=== PATIENT | female | born 1950 | race Caucasian/White ===

== ENCOUNTER → 2016-07-12 | Outpatient (CLI) | payer MEDICARE, BC ==
[~2016-07-12] MED LIST: ACETAMINOPHEN PO; ALBUTEROL17 GM INH; AMITRIPTYLINE H25 MG PO; AMOXICILLIN875 MG PO; ANTIVERT PO; B-100 COMPLEX1 TAB PO; BACTRIM DS TABL1 TA1 PO; BENTYL20 MG PO; CARAFATE1 G PO; CHROMIUM PO; CINNAMON PO; CIPRO PO; CLEOCIN HCL300 M1 PO; CLEOCIN PO; DOXYCYCLINE PO; FISH OIL 1,0001 CA2 PO; FISH OIL 1,0001 EACH PO; FISH OIL300 MG PO; FLAX SEED OIL1000 M1 PO; Flaxseed Oil PO; GLUCOSAMINE CHO PO; HAIR, SKIN & N1 EAC1 PO; LISINOPRIL-HCTZ1 T18 PO; LISINOPRIL-HCTZ1 T20 PO; LORTAB 5/500 TA1 TA1 PO; MEDROL PO; MUCINEX D1 TAB.SR1 PO; MULTIPLE VITAMI1 T11 PO; OMEPRAZOLE40 MG PO; PROMETHAZI6.25 MG/5 PO; RONDEC-DM ORAL30 ML PO; TURMERIC PO; TYLOX1 CAP 5/50 PO; VITAMIN D31000 UNI1 PO; ZYRTEC10 M2 PO
--- NOTE | ~2016-07-12 | BD1 ---
[facility] A Service of [facility] & [facility] RADIOLOGY TEXT RESULTS PATIENT: LEVY CARTY LOCATION: [facility] : 46 UNIT #: [id number] AGE: [address]: Amy Allison MD SEX: F ORDER DR: [id number] [facility] [address] [place], [place] [address] [id number] O MR#: [id number] Acc #: [id number] NAME: LEVY CARTY. : 1950 SEX: F STUDY DATE/TIME: 07/12/2016 12:45 UNIT: [facility] ROOM: STUDY DESCRIPTION: BD Dexa Bone Dens 1+ Site Attending Physician: Amy Allison M.D. Ordering Physician: Amy Allison M.D. Primary Care Physician: Amy Allison M.D. MEDICAL IMAGING REPORT This report is preliminary unless electronic signature is present EXAM Bone density scan, 07/12/2016. HISTORY Osteo. Hypertension. Patient takes multivitamins. History of kidney stones, arthritis, acid reflux, hiatal hernia. FINDINGS Bone density scanning performed in the upper four lumbar vertebral segments and proximal left femur. No comparison. L1-L4: Total bone mineral density 0.996 g/cm2 for a T-score of 0.5 standard deviation below mean for a reference population of normal young individuals and a Z-score 1.5 standard deviations above the mean for a age-matched population. Proximal right femur: Total bone mineral density 1.077 g/cm2 for a T-score 1.1 standard deviations above mean for a reference population of normal young individuals and a Z-score 2.5 standard deviations above the mean for an age-matched population. Right femoral neck bone mineral density 0.818 g/cm2 for a T-score 0.3 standard deviations below mean for a reference population of normal young individuals and a Z-score 1.4 standard deviations above the mean for an age-matched population. IMPRESSION Normal bone mineral density upper 4 lumbar vertebral segments and proximal left femur. Please correlate with the patient's clinical status. Continued surveillance is recommended. Dictated by... [facility]. [facility] A Service of [facility] RADIOLOGY TEXT RESULTS PATIENT: LEVY CARTY LOCATION: [facility] : 46 UNIT #: [id number] AGE: [address]: Amy Allison MD SEX: F ORDER DR: Galileo Madden M.D. THIS IS AN ELECTRONICALLY VERIFIED REPORT Galileo Madden M.D. at 07/15/2016 8:25 AM Mary TD: 07/14/2016 09:06 JOB #: [id number] MEDICAL IMAGING REPORT Page 1 of 1 COPY
--- NOTE | ~2016-07-12 | MY11 ---
[facility] A Service of [facility] RADIOLOGY TEXT RESULTS PATIENT: LEVY CARTY LOCATION: [facility] : 46 UNIT #: [id number] AGE: [address]: Amy Allison MD SEX: F ORDER DR: [id number] [facility] [address] [place], [place] [address] [id number] O MR#: [id number] Acc #: [id number] NAME: LEVY CARTY : 1950 SEX: F STUDY DATE/TIME: 07/12/2016 12:49 UNIT: [facility] ROOM: STUDY DESCRIPTION: MY Mammogram Screening Dig Narayan Attending Physician: Amy Allison M.D. Ordering Physician: Amy Allison M.D. Primary Care Physician: Amy Allison M.D. MEDICAL IMAGING REPORT This report is preliminary unless electronic signature is present EXAM Digital screening mammogram 07/12/2016. HISTORY 65-year-old woman. No risk elevation. Annual screen. COMPARISON Mammograms date to 11/13/2005 with most recent 01/17/2014. Digital imaging of each breast was completed utilizing a two-view examination of each breast in craniocaudal and mediolateral-oblique projections. Review and interpretation of digital mammograms include a second review in conjunction with FDA-approved CAD device. There is a normal parenchymal presentation bilaterally consistent with the patient's age. There are no breast masses imaged and no parenchymal asymmetry is visualized. There are no suspicious microcalcifications and I see no focal architectural disturbance. IMPRESSION Negative screening digital mammogram. One-year followup recommended. Patients over the age of 40 are entered into a reminder system with target due date for the next mammogram. A result letter will also be sent to the patient. BIRADS: 1 Negative ADDENDUM Breast parenchyma is fatty replaced. Dictated by... Ab Lema M.D. [facility] A Service [facility] RADIOLOGY TEXT RESULTS PATIENT: LEV[facility] CARTY [id number] 46 UNIT #: [id number] AGE: [address]: Amy Allison MD SEX: F ORDER DR: THIS IS AN ELECTRONICALLY VERIFIED REPORT Ab Lema M.D. at 07/12/2016 2:26 PM Odilon TD: 07/12/2016 13:57 JOB #: [id number] MEDICAL IMAGING REPORT Page 1 of 1 COPY
== END | disposition home or self-care (01) ==
LOC: CWCC 07-09 09:00
DX: Z12.31 Encounter for screening mammogram for malignant neoplasm of breast (principal); Z78.0 Asymptomatic menopausal state; R92.8 Other abnormal and inconclusive findings on diagnostic imaging of breast
CPT/HCPCS: 77080; G0202

== ENCOUNTER → 2016-07-16 | Outpatient (CLI) | payer MEDICARE, BC ==
--- NOTE | ~2016-07-16 | US5 ---
[facility] A Service of [facility] RADIOLOGY TEXT RESULTS PATIENT: LEVY CARTY LOCATION: [facility] : 46 UNIT #: [id number] AGE: [address]: Amy Allison MD SEX: F ORDER DR: [id number] [facility] [address] [place], [place] [address] [id number] O MR#: [id number] Acc #: [id number] NAME: LEVY CARTY : 1950 SEX: F STUDY DATE/TIME: 07/16/2016 10:57 UNIT: [facility] ROOM: STUDY DESCRIPTION: US Abdominal Complete Attending Physician: Amy Allison M.D. Referring Physician: Amy Allison M.D. Ordering Physician: Amy Allison M.D. Primary Care Physician: Amy Allison M.D. MEDICAL IMAGING REPORT This report is preliminary unless electronic signature is present EXAM Ultrasound of the abdomen, complete, 07/16/16. INDICATION 65-year-old female with abdominal pain, left-sided pain for 7 years worsening over the past 6 months. Hysterectomy in 1980. Cholecystectomy in 1996. TECHNIQUE Sonographic imaging of the abdomen was performed. COMPARISON Correlation is made with CT 05/14/14. FINDINGS Segmentally visualized aorta and IVC are unremarkable. Segmentally visualized pancreas unremarkable. The liver demonstrates no focal mass, intrahepatic ductal dilatation or ascites. The liver measures about 15.4 cm in long axis. The right kidney and left kidney are both nonobstructed. The right measures 10 cm in long axis and the left 9.1 cm. Cortical thinning is present bilaterally which may reflect chronic renal parenchymal disease. No shadowing stone on either side. Incidental 1 cm cyst in the lower pole right kidney. Extrahepatic common bile duct measures 5-6 mm. The gallbladder is surgically absent. The spleen measures 10.6 cm long axis. IMPRESSION 1. Surgical absence of the gallbladder. Incidental right renal cyst. Otherwise, negative abdominal ultrasound. Dictated by... Joseph Hanley M.D. [facility] A Service of [facility] RADIOLOGY TEXT RESULTS PATIENT: LEVY CARTY LOCATION: [facility] : 46 UNIT #: [id number] AGE: [address]: Amy Allison MD SEX: F ORDER DR: THIS IS AN ELECTRONICALLY VERIFIED REPORT Joseph Hanley M.D. at 07/19/2016 2:09 PM Reina TD: 07/16/2016 21:30 JOB #: [id number] MEDICAL IMAGING REPORT Page 1 of 1 COPY
== END | disposition home or self-care (01) ==
LOC: CGUS 10:06
DX: R10.9 Unspecified abdominal pain (principal); Z90.49 Acquired absence of other specified parts of digestive tract
CPT/HCPCS: 76700